=== PATIENT | male | born 1980 | race Caucasian/White ===

== ENCOUNTER 2018-01-21 09:28 | Emergency (ER) | payer SELFPAY ==
[~2018-01-21] VITALS: Ht 185.4 cm; Wt 88.6 kg
[~2018-01-21 09:28] MED LIST: ACETAMINOPHEN500 M1 PO
[2018-01-21 09:38] VITALS: Ht 185.4 cm; Wt 88.6 kg
[2018-01-21] MEDS ORDERED: VIBRAMYCIN 100100 MG PO (11:06)
[2018-01-21 11:20] VITALS: BP 132/86
== END 2018-01-21 11:25 | disposition home or self-care (01) ==
LOC: D.ER 09:28
DX: S30.861A Insect bite (nonvenomous) of abdominal wall, initial encounter (principal); W57.XXXA Bitten or stung by nonvenomous insect and other nonvenomous arthropods, initial encounter; Y93.89 Activity, other specified; Y92.89 Other specified places as the place of occurrence of the external cause; R50.9 Fever, unspecified; F17.200 Nicotine dependence, unspecified, uncomplicated; M25.50 Pain in unspecified joint